=== PATIENT | male | born 1955 | race Two or more races ===

== ENCOUNTER 2017-04-17 07:47 | Day surgery (SDC) | payer MEDICARE, MEDICAID ==
[~2017-04-17] VITALS: Ht 172.7 cm; Wt 112.9 kg
[2017-04-17] MEDS ORDERED: SODIUM CHLORIDE 0.9% 1,000 ML IV SCH (09:20)
[2017-04-17] MEDS ORDERED: CYCLOPENTOLATE HCL 1% OPHTH DROPS 2ML RIGHTEYE NR (10:00)
[2017-04-17] MEDS ORDERED: TROPICAMIDE 1% OPHTH DROPS 15ML RIGHTEYE NR (10:00)
[2017-04-17] MEDS ORDERED: PHENYLEPHRINE HCL 10% OPHTH DROPS 5ML RIGHTEYE NR (10:00)
[2017-04-17] MEDS ORDERED: MIDAZOLAM HCL 2 MG/2 ML VIAL ONE (10:39)
[2017-04-17] MEDS ORDERED: FENTANYL CITRATE/PF 50MCG/ML 2ML VIAL ONE (10:39)
[2017-04-17] MEDS ORDERED: DIPHENHYDRAMINE 50MG/ML VIAL ONE (10:40)
[2017-04-17] MEDS ORDERED: CEFAZOLIN SODIUM 1000MG/VIAL ONE (11:24)
[2017-04-17] MEDS ORDERED: SODIUM CHLORIDE 0.9% 10ML VIAL ONE (11:24)
[2017-04-17] MEDS ORDERED: INSU3INS6 SUBCUT (11:34)
[2017-04-17] MEDS ORDERED: PRED5DRO7 EACHEYE (11:34)
[2017-04-17] MEDS ORDERED: GLIP10TA10 PO (11:34)
[2017-04-17] MEDS ORDERED: DORZ10DR9 RIGHTEYE (11:34)
[2017-04-17] MEDS ORDERED: BRIM15DR2 EACHEYE (11:34)
[2017-04-17] MEDS ORDERED: ASPI-1159 PO (11:34)
[2017-04-17] MEDS ORDERED: LATA2.5D2 EACHEYE (11:34)
[2017-04-17] MEDS ORDERED: VALS320T2 PO (11:34)
[2017-04-17] MEDS ORDERED: CARV6.2548 PO (11:34)
[2017-04-17] MEDS ORDERED: METF10002 PO (11:34)
[2017-04-17] MEDS ORDERED: LIDOCAINE HCL 2%/EPINEPHRINE 1:100,000 20 ML VIAL INFIL ONE (13:38)
[2017-04-17] MEDS ORDERED: CYCLOPENTOLATE HCL 1% OPHTH DROPS 2ML ONE (13:38)
[2017-04-17] MEDS ORDERED: PHENYLEPHRINE HCL 10% OPHTH DROPS 5ML ONE (13:38)
[2017-04-17] MEDS ORDERED: TROPICAMIDE 1% OPHTH DROPS 15ML ONE (13:38)
[2017-04-17] MEDS ORDERED: PREDNISOLONE ACETATE 1% OPHTH DROPS 1ML ONE (13:38)
[2017-04-17] MEDS ORDERED: CIPROFLOXACIN 0.3% OPHTH SOLN 2.5ML ONE (13:38)
[2017-04-17] MEDS ORDERED: ACETYLCHOLINE CHLORIDE INTRAOCULAR SOLUTION 1:100 ELECTROLYTE DILUENT IO ONE (13:38)
[2017-04-17] MEDS ORDERED: BALANCED SALT IRRIG SOLN 15ML ONE (13:38)
[2017-04-17] MEDS ORDERED: BUPIVACAINE HCL/PF 0.75% (7.5MG/ML) 10ML ONE (13:38)
[2017-04-17] MEDS ORDERED: TETRACAINE 0.5% OPHTH DROPS 4ML ONE (13:38)
== END 2017-04-17 14:00 | disposition home or self-care (01) ==
LOC: OR 07:47
PROVIDERS: ATTEND Ophthalmology
DX: E11.36 Type 2 diabetes mellitus with diabetic cataract (principal); H25.9 Unspecified age-related cataract; H40.1110 Primary open-angle glaucoma, right eye, stage unspecified; I10 Essential (primary) hypertension; I25.10 Atherosclerotic heart disease of native coronary artery without angina pectoris; I25.2 Old myocardial infarction; Z95.0 Presence of cardiac pacemaker; M19.90 Unspecified osteoarthritis, unspecified site; E66.01 Morbid (severe) obesity due to excess calories; Z79.84 Long term (current) use of oral hypoglycemic drugs
CPT/HCPCS: 66170; 66185; 66984; 82962; A4216; J0690; J1200; J2250; J3010; J3490

== ENCOUNTER 2018-02-24 17:42 | Emergency (ER) | payer MEDICARE, MEDICAID ==
[~2018-02-24] VITALS: Ht 165.1 cm; Wt 109.0 kg
[~2018-02-24 17:42] MED LIST: ASPI-1159 PO; BRIM15DR2 EACHEYE; CARV6.2548 PO; DORZ10DR9 RIGHTEYE; GLIP10TA10 PO; INSU3INS6 SUBCUT; LATA2.5D2 EACHEYE; METF10002 PO; PRED5DRO7 EACHEYE; VALS320T2 PO
[2018-02-24] MEDS ORDERED: TETRACAINE 0.5% OPHTH DROPS 4ML OP ONE (18:45)
[2018-02-24 20:39] VITALS: BP 132/68
== END 2018-02-24 20:41 | disposition home or self-care (01) ==
LOC: ER 18:37
DX: H10.9 Unspecified conjunctivitis (principal); H40.9 Unspecified glaucoma; E11.9 Type 2 diabetes mellitus without complications; I10 Essential (primary) hypertension; Z79.4 Long term (current) use of insulin; Z95.0 Presence of cardiac pacemaker; Z79.82 Long term (current) use of aspirin
CPT/HCPCS: 99283

== ENCOUNTER 2019-11-21 12:11 | Emergency (ER) | payer MEDICARE, MEDICAID ==
[~2019-11-21] VITALS: Ht 165.1 cm; Wt 113.0 kg
[~2019-11-21 12:11] MED LIST changes: -ASPI-1159 PO; +ASPI-1497 PO; +METF-416 PO; -METF10002 PO
[2019-11-21 13:10] VITALS: BP 203/98
[2019-11-21] MEDS ORDERED: HYDROCODONE/ACETAMINOPHEN 5/325MG TABLET PO ONE (15:45)
== END 2019-11-21 16:05 | disposition home or self-care (01) ==
LOC: ER 12:11
DX: K04.7 Periapical abscess without sinus (principal); E11.9 Type 2 diabetes mellitus without complications; H40.9 Unspecified glaucoma; I10 Essential (primary) hypertension; I25.2 Old myocardial infarction; Z95.0 Presence of cardiac pacemaker; Z79.82 Long term (current) use of aspirin; Z79.4 Long term (current) use of insulin; Z79.899 Other long term (current) drug therapy
CPT/HCPCS: 99282; 99283

== ENCOUNTER → 2021-01-31 | Outpatient (CLI) | payer MEDICARE, MEDICAID ==
[~2021-01-31] MED LIST changes: +ACET-2708 PO; +CARB15DR BOTHEYE; +CLON0.1T PO; +COR25 PO; +CRES10 PO; +DULA0.75 SQ; +GLIM4TAB36 PO; +INSU100I24 SQ; +LATA2.5D14 EACHEYE; -LATA2.5D2 EACHEYE; +LOSA1TAB37 PO; +METF-414 PO
== END | disposition home or self-care (01) ==
LOC: LAB 12:43
PROVIDERS: ATTEND Ophthalmology
DX: Z01.812 Encounter for preprocedural laboratory examination (principal); Z20.822 Contact with and (suspected) exposure to COVID-19
CPT/HCPCS: 87426

== ENCOUNTER → 2021-02-01 | Day surgery (SDC) | payer MEDICARE, MEDICAID ==
[~2021-02-01] VITALS: Ht 154.9 cm; Wt 106.1 kg
[~2021-02-01] MED LIST changes: +ACETAMINOPHEN 500MG TABLET PO PRN; +BALANCED SALT IRRIG SOLN 15ML ONE; +BALANCED SALT IRRIG SOLN COMB1 500ML OP NR; +BUPIVACAINE HCL/PF 0.75% (7.5MG/ML) 10ML ONE; +CIPROFLOXACIN 0.3% OPHTH SOLN 2.5ML ONE; +FENTANYL CITRATE/PF 50MCG/ML 2ML VIAL ONE; +LIDOCAINE HCL 1% 20ML VIAL (Pyxis) INJ ONE; +LIDOCAINE HCL 2%/EPINEPHRINE 1:100,000 20 ML VIAL INFIL ONE; +MIDAZOLAM HCL 2 MG/2 ML VIAL ONE; +NEO/POLYMYX B SULF/DEXAMETH OPHTH OINT 3.5GM ONE; +ONDANSETRON HCL 4MG/2ML INJ IV PRN; +PREDNISOLONE ACETATE 1% OPHTH DROPS 5ML ONE; +PROPOFOL 200MG/20ML VIAL IV ONE; +SODIUM CHLORIDE 0.9% 1,000 ML IV SCH; +TETRACAINE 0.5% OPHTH DROPS 4ML ONE; +TRIAMCINOLONE ACETONIDE 40MG/ML 1ML VIAL ONE
== END | disposition home or self-care (01) ==
LOC: OR 09:47
PROVIDERS: ATTEND Ophthalmology
DX: T85.398A Other mechanical complication of other ocular prosthetic devices, implants and grafts, initial encounter (principal); I25.10 Atherosclerotic heart disease of native coronary artery without angina pectoris; E11.319 Type 2 diabetes mellitus with unspecified diabetic retinopathy without macular edema; E66.9 Obesity, unspecified; G47.30 Sleep apnea, unspecified; E78.5 Hyperlipidemia, unspecified; I50.9 Heart failure, unspecified; I13.0 Hypertensive heart and chronic kidney disease with heart failure and stage 1 through stage 4 chronic kidney disease, or unspecified chronic kidney disease; E11.22 Type 2 diabetes mellitus with diabetic chronic kidney disease; N18.30 Chronic kidney disease, stage 3 unspecified; F32.9 Major depressive disorder, single episode, unspecified; F41.9 Anxiety disorder, unspecified; Z79.82 Long term (current) use of aspirin; Z79.84 Long term (current) use of oral hypoglycemic drugs; Z79.899 Other long term (current) drug therapy; Z98.890 Other specified postprocedural states; Z95.0 Presence of cardiac pacemaker; X58.XXXA Exposure to other specified factors, initial encounter; Y93.89 Activity, other specified; Y92.89 Other specified places as the place of occurrence of the external cause; Y99.8 Other external cause status
CPT/HCPCS: 66180; 67120; 82962; J2250; J2704; J3010; J3301; J3490; C1762; C1783

== ENCOUNTER 2024-02-27 11:28 | Emergency (ER) | payer OTHER, MEDICAID ==
[~2024-02-27] VITALS: Ht 172.7 cm; Wt 90.0 kg
[~2024-02-27 11:28] MED LIST changes: -ACETAMINOPHEN 500MG TABLET PO PRN; -BALANCED SALT IRRIG SOLN 15ML ONE; -BALANCED SALT IRRIG SOLN COMB1 500ML OP NR; -BRIM15DR2 EACHEYE; -BUPIVACAINE HCL/PF 0.75% (7.5MG/ML) 10ML ONE; -CARV6.2548 PO; -CIPROFLOXACIN 0.3% OPHTH SOLN 2.5ML ONE; -DORZ10DR9 RIGHTEYE; -FENTANYL CITRATE/PF 50MCG/ML 2ML VIAL ONE; -GLIP10TA10 PO; -INSU3INS6 SUBCUT; -LATA2.5D14 EACHEYE; -LIDOCAINE HCL 1% 20ML VIAL (Pyxis) INJ ONE; -LIDOCAINE HCL 2%/EPINEPHRINE 1:100,000 20 ML VIAL INFIL ONE; -METF-416 PO; -MIDAZOLAM HCL 2 MG/2 ML VIAL ONE; -NEO/POLYMYX B SULF/DEXAMETH OPHTH OINT 3.5GM ONE; -ONDANSETRON HCL 4MG/2ML INJ IV PRN; -PRED5DRO7 EACHEYE; -PREDNISOLONE ACETATE 1% OPHTH DROPS 5ML ONE; -PROPOFOL 200MG/20ML VIAL IV ONE; -SODIUM CHLORIDE 0.9% 1,000 ML IV SCH; -TETRACAINE 0.5% OPHTH DROPS 4ML ONE; -TRIAMCINOLONE ACETONIDE 40MG/ML 1ML VIAL ONE; -VALS320T2 PO
[2024-02-27 11:40] VITALS: O2SAT 98
[2024-02-27 14:48] LABS: BASOPHILS % 0.4 % (0.0-2.0); EOSINOPHILS % 4.4 % (0.0-5.0); HEMATOCRIT. 34.3 % (42.0-52.0); HEMOGLOBIN. 11.6 g/dL (14.0-18.0); LYMPHOCYTES % 32.4 % (20.0-50.0); MEAN CORPUSCULAR HGB CONC 33.9 g/dL (31.0-37.0); MEAN CORPUSCULAR VOLUME 94.5 fL (80.0-94.0); MEAN PLATELET VOLUME 8.9 fl (7.4-10.4); MONOCYTES % 8.8 % (2.0-8.0); PLATELET 187 x1000/uL (130-400); RED BLOOD CELL COUNT 3.63 mill/uL (4.7-6.1); RED CELL DISTRIBUTION WIDTH 13.2 % (11.6-14.6); WHITE BLOOD COUNT 5.3 x1000/uL (4.5-11.0)
[2024-02-27 15:00] LABS: TROPONIN I HIGH SENSITIVITY 13 ng/L (3.0-53)
[2024-02-27 15:05] LABS: CHLORIDE 103 mEq/L (98-107); POTASSIUM 4.7 mEq/L (3.5-5.1); SODIUM 136 mEq/L (136-145)
[2024-02-27 15:06] LABS: CALCIUM 9.7 mg/dL (8.7-10.4); CARBON DIOXIDE 28 mEq/L (21-32)
[2024-02-27 15:11] LABS: CREATININE 3.4 mg/dL (0.6-1.3); GLUCOSE 222 mg/dL (70-105); UREA NITROGEN BLOOD 48 mg/dL (9-23)
[2024-02-27 17:53] VITALS: BP 147/75; PULSE 60; RESP 20; TEMP 97.9
== END 2024-02-27 17:54 | disposition home or self-care (01) ==
LOC: ER 11:28
DX: R60.0 Localized edema (principal); I11.0 Hypertensive heart disease with heart failure; I50.9 Heart failure, unspecified; Z79.899 Other long term (current) drug therapy; Z79.82 Long term (current) use of aspirin; Z98.890 Other specified postprocedural states
CPT/HCPCS: 36415; 71045; 80048; 83880; 84484; 85025; 93005; 99285